=== PATIENT | female | born 1965 | race Caucasian/White ===

== ENCOUNTER 2019-08-26 08:58 | Emergency (ER) | payer OTHER, SELFPAY ==
[2019-08-26 09:17] VITALS: BP 151/82; PULSE 73; RESP 16; TEMP 36.6; O2SAT 99
--- NOTE | 2019-08-26 09:30 | ED.SKABFB ---
HPI - Skin/Abscess/Foreign Bdy General Chief complaint: Skin/Abscess/Foreign Body Stated complaint: rash Time Seen by Provider: 08/26/19 09:22 Source: patient and RN notes reviewed Mode of arrival: ambulatory Limitations: no limitations History of Present Illness HPI narrative: Patient presents today complaining of a severely pruritic rash to bilateral hands, arms, left flank. Symptoms began 5 days ago and have continued to worsen. Patient was out of town and swimming in the ocean, but typically only up to her thighs. Denies any known allergen exposure. She has been using Caladryl without relief. They have checked her bed and luggage for bedbugs without signing any. MD complaint: rash Related Data Allergies Allergy/AdvReac Type Severity Reaction Status Date / Time No Known Allergies Allergy Unverified 05/29/18 09:30 Review of Systems Review of Systems: Narrative: CONSTITUTIONAL: Denies body aches, fever, chills, or sweats. EYES: Denies visual changes, redness, or discharge. ENT: Denies rhinorrhea, congestion, sore throat, or otalgia. CARDIOVASCULAR: Denies chest pain, palpitations, or edema. RESPIRATORY: Denies cough or dyspnea. GASTROINTESTINAL: Denies abdominal pain, nausea, vomiting, or diarrhea. GENITOURINARY: Denies dysuria or hematuria. SKIN: Denies wounds.+ Pruritic rash MUSCULOSKELETAL: Denies back pain, joint pain, or myalgia. NEUROLOGIC: Denies headache, numbness, tingling, or weakness. PSYCH: Denies depression or anxiety. [facility] Family History Family History (Updated 09/11/15 @ 23:19 by DOCTOR UNKNOWN) Father Hypertension Family history of diabetes mellitus in first degree relative Family history of lung cancer Family history of type 2 diabetes mellitus Patient's father is Grandparent Hypertension Other Cerebrovascular accident Social History Social History Smoking status: Former smoker Smoking end date: 02/13/05 Alcohol intake: never Substance use type: marijuana Gender identity (if verbalized by the patient): Female Comments At time of signature, I have reviewed and agree with nursing past medical, surgical, social and family history unless otherwise noted. Please see nursing chart for further information. There is no relevant family history pertinent to the presenting complaint Exam Narrative: Exam Narrative: GENERAL: Well-appearing, well-nourished, and in no acute distress. HEAD: Normocephalic, atraumatic. EYES: EOMI. No redness or drainage. Conjunctivae normal. ENT: Mucous membranes pink and moist. NECK: Normal AROM. CHEST: No respiratory distress. EXTREMITIES: Normal range of motion. No edema. SKIN: Warm, dry. Capillary refill normal. Normal skin turgor. + Patches of erythematous pinpoint vesicles scattered over the dorsums of both hands, bilateral forearms and upper arms. She also has 2 areas to the left flank. No induration, fluctuance, or active drainage. NEURO: No focal deficits. Alert and oriented x3. Gait steady. PSYCH: Normal affect. No signs of depression or anxiety. Course Vital Signs Vital signs: Vital Signs Temperature 97.9 F 08/26/19 09:17 Pulse Rate 73 08/26/19 09:17 Respiratory Rate 16 08/26/19 09:17 Blood Pressure 151/82 H 08/26/19 09:17 Pulse Oximetry 99 08/26/19 09:17 Temperature 97.9 F 08/26/19 09:17 Pulse Rate 73 08/26/19 09:17 Respiratory Rate 16 08/26/19 09:17 Blood Pressure 151/82 H 08/26/19 09:17 Pulse Oximetry 99 08/26/19 09:17 Reviewed. Pt has been instructed to follow up with her PCP regarding her elevated blood pressure today. MDM - Skin/Abscess/Foreign Bdy Differential Diagnosis Differential diagnosis: Likely abscess of skin or subcutaneous tissue, urticaria, cellulitis, eczema, insect bites, impetigo, contact dermatitis and other (Bedbugs) Critical Care Time Critical Care Time Critical Care Time: No Discharge Plan Discharge Clinical Impression: Contact dermatitis
== END 2019-08-26 09:39 | disposition home or self-care (01) ==
PROVIDERS: Emergency Provider Nurse Practitioner
DX: L25.9 Unspecified contact dermatitis, unspecified cause (principal); Z87.891 Personal history of nicotine dependence
CPT/HCPCS: 99213; G0463

== ENCOUNTER 2023-11-10 06:20 | Emergency (ER) | payer OTHER, SELFPAY ==
--- NOTE | ~2023-11-10 | XR_ITS ---
EXAMINATION: XR chest 1V portable DATE: 11/10/2023 07:15 INDICATION: Right-sided chest pain TECHNIQUE: frontal view of the chest was obtained. COMPARISON: None FINDINGS: The lungs are clear with no focal airspace opacities, pulmonary edema, pleural effusion or pneumothor ax. The cardiomediastinal silhouette is normal. Visualized bones and soft tissues are unremarkable. IMPRESSION: 1. No acute cardiopulmonary disease. Reviewed, dictated and finalized at location A.
--- NOTE | ~2023-11-10 | CT_ITS ---
CT abdomen pelvis w con Ordering provider: Nico Lim MD History: 57 years Female with . RUQ abdominal pain . Comparison: None. Technique: CT abdomen and pelvis with IV and without oral contrast. Automated exposure control and it erative reconstruction technique were employed. The dose-length product was 1422.44 mGy-cm. 100 mL Om nipaque 350 was given IV. Findings: VISUALIZED LOWER CHEST: Normal. Tiny focal pleural thickening is seen in the left and right lung base s. UPPER ABDOMINAL ORGANS: Liver: Fat infiltration. Hepatomegaly Gallbladder: Cholelithiasis. Spleen: Normal. Stomach/duodenum: Normal. Pancreas: Normal. Adrenals: Adrenal adenoma in the right adrenal medial limb measuring 1.1 cm. Adrenal adenoma in the l eft medial limb measuring 1.6. No follow-up is advised unless clinically warranted. Kidneys: Normal. PELVIC ORGANS: The bladder is normal. Slight thickening in the anterior wall is not excluded no Foll ow-up advised. BOWEL AND MESENTERY: Colon: No evidence of diverticulitis. Normal appendix. A lucency is seen adjacent to the appendix isn 't clearly 122 is most likely artifactual. Small Bowel: Normal. No obstruction. Peritoneum/mesentery: No no definite free air or free fluid. No mesenteric lymphadenopathy. RETROPERITONEUM: Mild atheromatous disease of the abdominal aorta. No retroperitoneal lymphadenopat hy. Small para-aortic lymph nodes are noted. MUSCULOSKELETAL: Superficial soft tissues: The superficial soft tissues are normal. Bones: Age appropriate degenerative changes of the spine. IMPRESSION: 1. Hepatomegaly with fat infiltration.. 2. Cholelithiasis. 3. No evidence of appendicitis, diverticulitis or intestinal obstruction. Lucency is seen near to th e appendix is most likely artifactual. 4. Bilateral Adrenal adenoma. No follow-up is advised unless clinically warranted. Reviewed, dictated and finalized at location A. IMPRESSION: 1. Hepatomegaly with fat infiltration.. 2. Cholelithiasis. 3. No evidence of appendicitis, diverticulitis or intestinal obstruction. Ritchie ncy is seen near to the appendix is most likely artifactual. 4. Bilateral Adrenal adenoma. No follow-up is advised unless clinically warran dion.
[2023-11-10 06:27] VITALS: BP 146/62; PULSE 77; RESP 16; TEMP 36.6; O2SAT 99
--- NOTE | 2023-11-10 06:47 | ECG_ITS ---
Test Date: 2023-11-10 06:59:33 Measurements Intervals [place] Rate: 70 P: 35 MT: 192 QRS: 25 QRSD: 88 T: 75 QT: 383 QTc: 414 Interpretive Statements SINUS RHYTHM BORDERLINE ST-T WAVE ABNORMALITY- HIGH LATERAL LEADS BASELINE ARTIFACT- I, II, III, AVR, AVL BORDERLINE ECG No previous ECG available for comparison Electronically Signed On 11-10-2023 08:05:41 CDT by Adrien Bowers D.O.
[2023-11-10] MEDS: ASPIRIN 81 MG CHEWABLE TABLET 324 MG PO (06:53)
[2023-11-10 06:54] VITALS: PULSE 82
[2023-11-10 06:56] VITALS: O2SAT 100
[2023-11-10 07:10] LABS: Basophils Percent Auto 0.4 % (0.2-1.2); Eosinophils Absolute Auto 0.2 K/mm3 (0-0.3); Eosinophils Percent Auto 2.1 % (0-4.4); Hematocrit 39.6 % (37.0-47.0); Hemoglobin 13.4 g/dL (12.0-15.0); Immature Granulocyte Absolute 0.03 K/mm3 (0.00-0.031); Immature Granulocyte Percent A 0.4 % (0-0.5); Lymphocytes Absolute Auto 1.56 K/mm3 (0.9-3.2); Lymphocytes Percent Auto 20.9 % (18.3-44.2); Mean Corpuscular HGB Conc 33.8 g/dl (32-36); Mean Corpuscular Hemoglobin 28.5 pg (26-34); Mean Corpuscular Volume 84.3 fl (80-100); Mean Platelet Volume 9.5 fl (7.4-10.4); Monocytes Absolute Auto 0.3 K/mm3 (0.1-0.6); Monocytes Percent Auto 3.5 % (2.6-8.5); Neutrophils Absolute Auto 5.4 K/mm3 (1.3-6.7); Neutrophils Percent Auto 72.7 % (45.5-73.1); Platelet Count Result 231 k/mm3 (150-375); Red Cell Distribution Width 13.5 % (11.5-14.5); White Blood Count 7.5 K/mm3 (4.5-10.0)
[2023-11-10 07:16] VITALS: BP 140/76; PULSE 70; RESP 16; O2SAT 96
[2023-11-10 07:20] LABS: Alanine Aminotransferase 20 U/L (6-35); Albumin Level 4.1 g/dL (3.5-5.1); Alkaline Phosphatase 148 U/L (38-126); Anion Gap 10 mmol/L (4-12); Aspartate Amino Transferase 53 U/L (14-36); Bilirubin,Total 0.5 mg/dL (0.2-1.3); Blood Urea Nitrogen 8 mg/dL (7-17); Calcium 8.7 mg/dL (8.4-10.2); Carbon Dioxide 23 mmol/L (22-30); Chloride 102 mmol/L (98-107); Estimated CRCL calculation 104 ml/min; Estimated Glomerular Filt Rate > 60; Glucose 332 mg/dL (65-110); Lipase 89 U/L (23-300); Sodium 135 mmol/L (137-145)
[2023-11-10 07:22] LABS: INR 0.9
[2023-11-10 07:23] LABS: Partial Thromboplastin Time 30.6 Seconds (22.3-36.8)
[2023-11-10 07:32] LABS: Troponin I < 0.012 ng/mL (0.000-0.034)
--- NOTE | 2023-11-10 08:11 | ED.CHESTPAIN ---
HPI - Chest Pain General Chief Complaint: Chest Pain Stated Complaint: pain under right breast/ribs Time Seen by Provider: 11/10/23 06:56 Source: patient Mode of arrival: ambulatory Limitations: no limitations History of Present Illness HPI narrative: This is a 57-year-old female, with no significant past medical history, presents emergency department complaining of right-sided chest pain. She describes it as dull and burning without any known aggravating or alleviating factors. She states this pain began in June and has worsened in the past day. She has no other complaints at this time. Related Data Allergies Allergy/AdvReac Type Severity Reaction Status Date / Time No Known Allergies Allergy Verified 11/10/23 06:21 Review of Systems Review of Systems: All systems reviewed & are unremarkable except as noted in HPI and below PMFSH Past Medical History Medical History Aortic valve sclerosis Cardiac murmur Mixed hyperlipidemia Surgical History Surgical History No significant past surgical history Family History Family History Father Hypertension Family history of diabetes mellitus in first degree relative Family history of lung cancer Family history of type 2 diabetes mellitus Patient's father is Grandparent Hypertension Other Cerebrovascular accident Social History Social History Smoking status: Former smoker Smoking end date: 02/13/05 Alcohol intake: never Substance use type: marijuana Gender identity (if verbalized by the patient): Female Exam Narrative: GENERAL: Well-developed, well-nourished, and in no acute distress. HEAD: Normocephalic, atraumatic. EYES: PERRLA and EOMI. CHEST: Clear to auscultation. No respiratory distress. No wheezes rales or rhonchi. Mild right inferior costal margin tenderness to palpation HEART: Regular rate and rhythm. No murmur heard. Normal peripheral pulses. ABDOMEN: Soft, nontender, nondistended, normal active bowel sounds. EXTREMITIES: Normal range of motion. No edema. SKIN: Warm, dry, no rash. NEURO: Alert and oriented x3. No focal deficit. Moving all 4 limbs spontaneously PSYCH: Normal mood and affect. Course Course Emergency Course: 09:50 - CBC unremarkable. Chemistries demonstrate mild hyponatremia with sodium of 135 and hyperglycemia with glucose of 332 with a normal gap but are otherwise unremarkable. CT abdomen pelvis demonstrates fatty infiltration of liver without other acute changes, cholelithiasis bilateral adrenal adenoma but no other acute intra-abdominal findings. I suspect the patient's pain may be related to biliary colic. Heart score 1. I do not suspect ACS, however repeat troponin and EKG are now pending. Will plan for discharge after labs result. 10:37 - I discussed the findings and recommendations with the patient. Discussed return and emergency precautions including signs/symptoms of ACS, respiratory distress an acute abdomen. The patient voiced understanding and agreement with the plan. All questions answered to her satisfaction. Vital Signs Vital signs: Vital Signs Temperature 97.9 F 11/10/23 06:27 Pulse Rate 77 11/10/23 06:27 Respiratory Rate 16 11/10/23 06:27 Blood Pressure 146/62 H 11/10/23 06:27 Pulse Oximetry 99 11/10/23 06:27 Oxygen Delivery Room Air 11/10/23 06:27 Temperature 97.8 F 11/10/23 10:50 Pulse Rate 66 11/10/23 10:50 Respiratory Rate 18 11/10/23 10:50 Blood Pressure 154/75 H 11/10/23 10:50 Pulse Oximetry 98 11/10/23 10:50 Oxygen Delivery Room Air 11/10/23 06:56 MDM - Chest Pain MDM Narrative Medical decision making narrative: Plan: Labs, imaging, pain control, EKG, troponin, reassess Differential Diagnosis Differential
[2023-11-10] MEDS: SODIUM CHLORIDE 0.9% IV 1,000 ML 999 ML IV CONT (08:27)
--- NOTE | 2023-11-10 09:47 | ECG_ITS ---
Test Date: 2023-11-10 09:46:24 Measurements Intervals [place] Rate: 60 P: 1 AR: 200 QRS: 18 QRSD: 91 T: 72 QT: 407 QTc: 408 Interpretive Statements SINUS RHYTHM BORDERLINE ST-T WAVE ABNORMALITY- HIGH LATERAL LEADS BORDERLINE ECG Compared to ECG 11/10/2023 06:59:33 No significant changes Electronically Signed On 11-10-2023 10:32:57 CDT by Adrien Bowers D.O.
[2023-11-10 10:35] LABS: Troponin I < 0.012 ng/mL (0.000-0.034)
[2023-11-10 10:50] VITALS: BP 154/75; PULSE 66; RESP 18; TEMP 36.6; O2SAT 98
== END 2023-11-10 11:00 | disposition home or self-care (01) ==
PROVIDERS: Student in an Organized Health Care Education/Training Program; Emergency Provider Preventive Medicine Aerospace Medicine
DX: R07.89 Other chest pain (principal); K80.20 Calculus of gallbladder without cholecystitis without obstruction; K76.0 Fatty (change of) liver, not elsewhere classified; D35.02 Benign neoplasm of left adrenal gland; D35.01 Benign neoplasm of right adrenal gland; E78.2 Mixed hyperlipidemia; Z87.891 Personal history of nicotine dependence
CPT/HCPCS: 36415; 71045; 74177; 80053; 83690; 84484; 85025; 85610; 85730; 93005; 96360; 99284; A9270; J7030; Q9967

== ENCOUNTER 2023-12-11 09:15 | Outpatient (RCR) | payer OTHER, SELFPAY | END 2024-01-03 14:03 | disposition home or self-care (01) | LOC: ANHDMC 09:15 | PROVIDERS: PCP Family Medicine; Visit Provider Nurse Practitioner Adult Health | DX: E11.9 Type 2 diabetes mellitus without complications (principal); Z71.89 Other specified counseling | CPT/HCPCS: G0108 ==

== ENCOUNTER 2023-12-21 00:34 | Day surgery (SDC) | payer SELFPAY ==
[2023-12-12 14:18] VITALS: BMI 39.7
--- NOTE | 2023-12-12 14:19 | PC.NURSE ---
Report to the Outpatient Waiting Room, entrance under the green pavilion located off [facility], at time _1100_ on date _51-07-1926_. Planned Procedure Time: _1pm_.? Time changes happen often and if your time is changed the preop area will call you the afternoon before. - You and your visitor will be asked to self-screen and do not enter if you have any COVID symptoms. Please call surgeon if you need to reschedule. - A mask is optional within the hospital at this time. Patients may have clear liquids (water, carbonated beverages, clear teas, apple juice) until 3 hours prior to surgery with a maximum of 20 ounces. - No food from midnight until time of surgery and no smoking Take only the following medications with a SIP of water on the morning of surgery: __None DO NOT STOP ANY OF YOUR OTHER PRESCRIPTION MEDICATIONS PRIOR TO SURGERY EXCEPT THE FOLLOWING Medications to discontinue per physician ____None____ Please no make-up, nail estonian, hairspray, perfume, deodorant, or body powder the day of surgery.? No jewelry (including any body piercings) or valuables the day of surgery, leave them at home.? Please take a shower or bath the night before, or the morning of, surgery with an antibacterial soap.? Wear comfortable, loose fitting clothing.? - Jewelry must be removed prior to entering the operating room.? Rings and piercings that are not removed may be cut off. - The hospital will not accept responsibility for valuables.? - Please leave all valuables, including medications, at home the day of surgery. If you are going home after surgery, a licensed shuttle van driver must drive you home.? - NO public transportation without another adult if you receive anesthesia. - We recommend that an adult stay with you for 24 hours following discharge. - We also recommend that you do not drive, make important decision, drink alcoholic beverages, or take any drugs that were not prescribed by your health care provider for at least 24 hours after your discharge time. Follow any additional instructions given to you from your surgeon. Telephone instructions given to _Sheri_and asked if any additional questions and then verbalized understanding. Patient advised to call surgeon office or pre surgery nurse liaison [phone] if any additional questions.
[2023-12-21] VITALS (9 sets, daily range): BP systolic 128–178; BP diastolic 51–75; PULSE 59–70; RESP 10–16; TEMP 36.2–36.6; O2SAT 92–100; BMI 39.7
--- NOTE | 2023-12-21 08:47 | P.PNAN_ITS ---
Anes - Initial Pre Proc Eval Procedure: Operation Date: 12/21/23 13:00 Proposed Procedures p Laparoscopic Cholecystectomy - Charles Fung MD Date/Time: 12/21/23 08:48 Surgeon: Charles Fung MD Pre Op Diagnosis: Chr Calculous Cholecystitis Patient Data Age: 58 Gender: F Height: 1.6 m Weight: 101.8 kg Allergies Allergy/AdvReac Type Severity Reaction Status Date / Time No Known Allergies Allergy Verified 12/13/23 08:59 Home Medications Medication Instructions Recorded Confirmed Type dapagliflozin propanediol 5 mg 5 mg PO DAILY #30 tabs 11/21/23 12/13/23 Rx tablet (Farxiga) blood sugar diagnostic (OneTouch #100 ea 12/20/23 Rx Verio test strips) blood-glucose meter (OneTouch #1 ea 12/20/23 Rx Verio Flex Meter) lancets 30 gauge (OneTouch #100 ea 12/21/23 Rx UltraSoft 2 Lancet) Patient hx anesthesia problems: none Family hx anesthesia problems: none Results Review: All pre-operative results and documents have been reviewed as part of the pre- operative evaluation. COUNT INCLUDES THE [facility] Past Medical History Medical History Aortic valve sclerosis Cardiac murmur Diabetes Elevated liver enzymes Menopausal and postmenopausal disorder Mixed hyperlipidemia Screening for breast cancer Screening for colon cancer Surgical History Surgical History Hx of section 1992 No significant past surgical history Family History Family History Father Hypertension Family history of diabetes mellitus in first degree relative Family history of lung cancer Family history of type 2 diabetes mellitus Patient's father is Grandparent Hypertension Other Atrial fibrillation Cerebrovascular accident Crohn disease Social History Social History Smoking packs per day: 1 Smoking cigarettes per day: 20.0 Years smoked: 20 Smoking pack-years: 20.00 Smoking status: Former smoker Tobacco type: cigarettes Smoking end date: 12/11/06 Alcohol intake: current Drinks per week: 1 Substance use type: marijuana Other substance usage details: Daily Do You Feel Safe in your Home?: Yes Lack of Transportation: No Lack of Food: Sometimes True Current Housing: I Have Housing Concerned About Future Housing: No Difficulty Paying Gas/Electric Bills: No Difficulty Paying for Meds: No Currently Unemployed: No Education: Associate Degree Difficulty w/ Childcare or Family Care: No Living arrangements: with family Gender identity (if verbalized by the patient): Female Spiritual care concerns: No Anes - Eval Final PreProcedure Day of Procedure 12/21/23 08:48 Patient weight: obese Heart: regular rate and rhythm (murmur) Lungs: clear to auscultation and normal air movement Airway: Mallampati scale class II Neurological: alert and oriented Last oral intake: >/= 8 hours (before 8pm last night) ASA classification: III Emergent: no Anesthetic plan: proceed Anesthesia type and monitoring: general ETT and standard monitoring Results Review: All pre-operative results and documents have been reviewed as part of the pre- operative evaluation. Informed Consent: The patient's anesthetic plan and its attendant risks and benefits were discussed with the patient/family/POA. Questions were solicited and answers provided to the satisfaction of the patient/family/POA.
[2023-12-21] MEDS: LACTATED RINGERS 1,000 ML 30 ML IV CONT ×2 (11:20→14:54)
[2023-12-21 11:25] LABS: Basophils Percent Auto 0.5 % (0.2-1.2); Eosinophils Absolute Auto 0.2 K/mm3 (0-0.3); Eosinophils Percent Auto 2.7 % (0-4.4); Hematocrit 41.9 % (37.0-47.0); Hemoglobin 13.9 g/dL (12.0-15.0); Immature Granulocyte Absolute 0.02 K/mm3 (0.00-0.031); Immature Granulocyte Percent A 0.2 % (0-0.5); Lymphocytes Percent Auto 30.2 % (18.3-44.2); Mean Corpuscular HGB Conc 33.2 g/dl (32-36); Mean Corpuscular Hemoglobin 28.4 pg (26-34); Mean Corpuscular Volume 85.7 fl (80-100); Mean Platelet Volume 9.5 fl (7.4-10.4); Monocytes Absolute Auto 0.3 K/mm3 (0.1-0.6); Monocytes Percent Auto 3.9 % (2.6-8.5); Neutrophils Absolute Auto 5.2 K/mm3 (1.3-6.7); Neutrophils Percent Auto 62.5 % (45.5-73.1); Platelet Count Result 289 k/mm3 (150-375); Red Blood Count 4.89 M/mm3 (4.2-5.4); Red Cell Distribution Width 14.3 % (11.5-14.5); White Blood Count 8.3 K/mm3 (4.5-10.0)
[2023-12-21 11:29] LABS: Glucose Point of Care 154 mg/dl (65-105)
[2023-12-21 11:45] LABS: Alanine Aminotransferase 16 U/L (6-35); Albumin Level 4.5 g/dL (3.5-5.1); Alkaline Phosphatase 102 U/L (38-126); Amylase 74 U/L (30-110); Aspartate Amino Transferase 42 U/L (14-36); Bilirubin,Total 0.8 mg/dL (0.2-1.3); Lipase 60 U/L (23-300)
--- NOTE | 2023-12-21 12:17 | WPDHPUPDATE1 ---
History and Physical Update Update Date/Time: 12/21/23 12:17 History and Physical has been reviewed, including an updated exam of the patient. There are NO changes in the patient's condition. Risks, benefits, and alternatives have been discussed and questions answered. Patient agrees to proceed with procedure.
[2023-12-21] MEDS: KETOROLAC 15 MG/ML VIAL (*BKC) IV PUSH (12:46)
[2023-12-21] MEDS: SCOPOLAMINE 1 MG PATCH 1 PATCH TRANSDERM (12:46)
[2023-12-21] MEDS: ACETAMINOPHEN 500 MG TABLET 1000 MG PO (12:46)
[2023-12-21] MEDS: ceFAZolin 2 GM/D5W 50 ML 2 GM/50 ML BAG IVPB (13:42)
[2023-12-21] MEDS: BUPIVACAINE/EPINEPHRINE 0.5% 50 ML VIAL 30 ML INFILTRATE (13:42)
--- NOTE | 2023-12-21 14:26 | SUR.OPER ---
100 mcg of fentanyl given to Penny Shi ARCHITECTURE ANALYST
--- NOTE | 2023-12-21 14:54 | P.OP_ITS ---
Procedure Note - Detailed Date of Procedure 12/21/23 Pre-op Diagnosis Cholelithiasis with chronic cholecystitis Post-op Diagnosis Same Procedure Performed Laparoscopic cholecystectomy Surgeon Charles Fung MD Senior Staff Specialized Employment Yadira Mccormick [facility] Anesthesia General and Local Indications Patient has been having postprandial epigastric abdominal pain that radiates around to her back. It is worse after fatty meals. It has been going on for 8 or 9 months and now she has chronic right upper quadrant pain but made much worse with eating and particularly fatty foods. Her imaging shows gallstones. She is taken to surgery now for laparoscopic cholecystectomy Findings Chronic inflammation, no biliary ductal dilatation, fatty liver, large gallstone in the gallbladder. Description of Procedure Patient was taken to surgery and induced into general anesthesia. The abdomen is prepped and draped. Initial incision was made after local infiltration. The incision was in the epigastrium. A varies needle was inserted into the peritoneal cavity and insufflation was carried out. Once the abdomen was adequately distended, 5 minutes mm applied Medical optical trocar was inserted. This showed intraperitoneal position. Under direct visualization, the other trocars were placed in the usual fashion. The 5 mm trocar was exchanged for a 10 11 trocar also under direct vision. Patient was placed in reverse Trendelenburg. Gallbladder was found easily. It had no adhesions to it. A laparoscopic aspirator was used and the gallbladder was decompressed. A Vicryl endoloop was then used and the cholecystotomy was closed. The gallbladder was then retracted anterosuperiorly. Traction was placed on the infundibulum. The large stone was noted during decompression of the gallbladder as well as in the area of the infundibulum. With traction on the infundibulum dissection in the triangle of Calot was carried out. A cystic duct and cystic artery were carefully dissected. The gallbladder was dissected off the liver at its lower 3rd. Critical view was achieved. I then securely clipped and divided the cystic duct and cystic artery. The gallbladder was then dissected from its remaining attachments to the liver until it was completely freed. Gallbladder was placed in an Endo-Catch bag and then retrieved through the 10 11 epigastric trocar site. I had to slightly dilate the epigastric trocar site with a blunt clamp to accommodate the gallbladder with its large stone. Once the gallbladder was removed, I replaced the epigastric trocar and we then reviewed the right upper quadrant. All looked good with no evidence of bleeding or bile leakage. We then evacuated CO2 and removed the trocar sleeves. Skin wounds were closed with running 4-0 Monocryl skin suture. The wounds were dressed with Exofin surgical adhesive. The patient was awakened and taken to recovery in good condition. Sponge and needle counts were correct x2. Estimated Blood Loss -5 Drains No Packing No Pathology Yes (Gallbladder) Complications None Condition Stable Disposition PACU [facility] Billing Surgery - Charge Forward: Surgery Billing (Laparoscopic cholecystectomy)
[2023-12-21] MEDS: fentaNYL CITRATE INJ (*CRX) 100 MCG/2 ML VIAL 25 MCG IV PUSH ×2 (15:57→16:00)
== END 2023-12-21 17:15 | disposition home or self-care (01) ==
PROVIDERS: PCP Family Medicine; Visit Provider Surgery
PROC: 0FT44ZZ Resection of Gallbladder, Percutaneous Endoscopic Approach (ICD-10-PCS; CPT 47562; principal; 2023-12-21 13:00)
DX: K80.10 Calculus of gallbladder with chronic cholecystitis without obstruction (principal); E78.2 Mixed hyperlipidemia; E11.9 Type 2 diabetes mellitus without complications; I35.8 Other nonrheumatic aortic valve disorders; G89.18 Other acute postprocedural pain; R01.1 Cardiac murmur, unspecified; F12.90 Cannabis use, unspecified, uncomplicated; E66.9 Obesity, unspecified; Z68.39 Body mass index [BMI] 39.0-39.9, adult; Z79.84 Long term (current) use of oral hypoglycemic drugs; Z98.890 Other specified postprocedural states; Z87.891 Personal history of nicotine dependence; Z80.1 Family history of malignant neoplasm of trachea, bronchus and lung; Z82.49 Family history of ischemic heart disease and other diseases of the circulatory system
CPT/HCPCS: 47562; 36415; 80076; 82150; 82948; 83690; 85025; 88304; A9270; J0330; J0690; J1100; J1885; J2003; J2250; J2405; J2704; J3010; J7030; J7120

== ENCOUNTER 2023-12-30 22:52 | Emergency (ER) | payer OTHER, SELFPAY ==
--- NOTE | ~2023-12-30 | XR_ITS ---
Portable chest x-ray Comparison: 11/10/2023 Clinical History: Chest pain Findings: Lungs are clear, without focal consolidation or pleural effusion. Cardiomediastinal silho uette is stable. Bones and soft tissues are unremarkable. Impression: Normal chest. Reviewed, dictated and finalized at [facility]. RVISOR RECORD PRESS Impression: Normal chest.
--- NOTE | ~2023-12-30 | CT_ITS ---
Clinical Indication: Chest pain, recent surgery CT Scan of the Chest with Contrast: Technique: Contiguous sections were acquired throughout the chest after intravenous administration of 100 cc of Omnipaque 350. Dose reduction technique was used on this scan by utilizing automated expos ure control and iterative reconstruction technique. The dose-length product (DLP) was 569.85 mGy-cm. COMPARISON: 11/10/2023 Findings: There is no evidence of any significant mediastinal, hilar or axillary lymphadenopathy. There is no f illing defect in the pulmonary arterial tree to suggest pulmonary embolus. There is no evidence of ao rtic dissection or aneurysm. There is no evidence of pleural or pericardial effusion. The lungs are clear. No pulmonary nodules or infiltrates are noted. Images through the upper abdomen reveal stable bilateral adrenal nodules. Impression: No evidence of pulmonary embolus, aortic dissection, or aortic aneurysm. Clear lungs. Reviewed, dictated and finalized at [facility]. E WINDER Impression: No evidence of pulmonary embolus, aortic dissection, or aortic aneurysm. Clear lungs.
[2023-12-30 22:53] VITALS: BP 154/88; PULSE 73; RESP 16; TEMP 36.4; O2SAT 99
--- NOTE | 2023-12-30 22:59 | ECG_ITS ---
Test Date: 2023-12-30 23:02:59 Measurements Intervals [place] Rate: 66 P: 7 NE: 197 QRS: 43 QRSD: 84 T: 61 QT: 398 QTc: 418 Interpretive Statements SINUS RHYTHM LOW QRS VOLTAGE IN PRECORDIAL LEADS CANNOT R/O SEPTAL INFARCT, AGE INDETERMINATE BORDERLINE ST-T WAVE ABNORMALITY- HIGH LATERAL LEADS BASELINE ARTIFACT- I, II, III, AVR, AVL, AVF, V1-V6 ABNORMAL ECG Compared to ECG 11/10/2023 09:46:24 NO SIGNIFICANT CHANGE Electronically Signed On 12-31-2023 07:43:15 CRITICAL CARE PHYSICIAN ASSISTANT by Adrien Bowers D.O.
[2023-12-30 23:01] VITALS: PULSE 70
[2023-12-30 23:02] VITALS: BP 154/88; PULSE 73; RESP 14; O2SAT 98; O2SAT 99
[2023-12-30 23:08] LABS: Basophils Percent Auto 0.4 % (0.2-1.2); Eosinophils Absolute Auto 0.3 K/mm3 (0-0.3); Eosinophils Percent Auto 2.5 % (0-4.4); Hematocrit 40.4 % (37.0-47.0); Hemoglobin 13.5 g/dL (12.0-15.0); Immature Granulocyte Absolute 0.02 K/mm3 (0.00-0.031); Immature Granulocyte Percent A 0.2 % (0-0.5); Lymphocytes Absolute Auto 3.29 K/mm3 (0.9-3.2); Lymphocytes Percent Auto 33.2 % (18.3-44.2); Mean Corpuscular HGB Conc 33.4 g/dl (32-36); Mean Corpuscular Hemoglobin 28.4 pg (26-34); Mean Corpuscular Volume 84.9 fl (80-100); Mean Platelet Volume 9.5 fl (7.4-10.4); Monocytes Absolute Auto 0.5 K/mm3 (0.1-0.6); Neutrophils Absolute Auto 5.8 K/mm3 (1.3-6.7); Neutrophils Percent Auto 58.7 % (45.5-73.1); Platelet Count Result 294 k/mm3 (150-375); Red Blood Count 4.76 M/mm3 (4.2-5.4); Red Cell Distribution Width 14.1 % (11.5-14.5); White Blood Count 9.9 K/mm3 (4.5-10.0)
[2023-12-30 23:18] LABS: Alanine Aminotransferase 17 U/L (6-35); Albumin Level 4.4 g/dL (3.5-5.1); Alkaline Phosphatase 119 U/L (38-126); Anion Gap 8 mmol/L (4-12); Aspartate Amino Transferase 44 U/L (14-36); Bilirubin,Total 0.8 mg/dL (0.2-1.3); Blood Urea Nitrogen 15 mg/dL (7-17); Calcium 9.6 mg/dL (8.4-10.2); Carbon Dioxide 25 mmol/L (22-30); Chloride 105 mmol/L (98-107); Estimated CRCL calculation 75 ml/min; Estimated Glomerular Filt Rate > 60; Glucose 218 mg/dL (65-110); Lipase 80 U/L (23-300); Potassium 4.3 mmol/L (3.4-5.0); Sodium 138 mmol/L (137-145)
--- NOTE | 2023-12-30 23:26 | ED_ITS ---
HPI - Chest Pain General Chief Complaint: Chest Pain <CHRISTINA Santos Last Filed: 12/31/23 01:47> Stated Complaint: chest pain <CHRISTINA Santos Last Filed: 12/31/23 01:47> Time Seen by Provider: 12/30/23 22:57 <Hang Morrison PA-C - Last Filed: 12/31/23 01:47> Source: patient <CHRISTINA Santos Last Filed: 12/31/23 01:47> Mode of arrival: EMS <CHRISTINA Santos Last Filed: 12/31/23 01:47> Limitations: no limitations <CHRISTINA Santos Filed: 12/31/23 01:47> History of Present Illness HPI narrative: This is a 58-year-old female who presents to the ED via EMS from home for chief complaint of left sharp left-sided chest pain beginning 45 minutes prior to arrival. Patient reports that she started to have pain shooting from back to front under the left arm and is worse with inspiration. She is s/p cholecystectomy 9 days ago for cholecystitis. Denies cardiac history but was recently diagnosed with diabetes mellitus as well. States that she had an episode of diaphoresis tonight but no associated syncope, vomiting. Does not seem to be exertional. She has known aortic stenosis. Denies fevers, chills, leg swelling, palpitations, shortness of breath, cough. Received 324 ASA via EMS <Hang Morrison PA-C Last Filed: 12/31/23 01:47> Related Data Allergies/Adverse Reactions: Allergies Allergy/AdvReac Type Severity Reaction Status Date / Time No Known Allergies Allergy Verified 12/30/23 23:03 <Hang Morrison PA-C - Last Filed: 12/31/23 01:47> Review of Systems Review of Systems: All systems as dictated in HPI <Hang Morrison PA-C Last Filed: 12/31/23 01:47> [facility] Past Medical History Medical History: Medical History Aortic valve sclerosis Cardiac murmur Diabetes Elevated liver enzymes Menopausal and postmenopausal disorder Mixed hyperlipidemia Screening for breast cancer Screening for colon cancer <Hang Morrison PA-C - Last Filed: 12/31/23 01:47> Surgical History Surgical History: Surgical History Hx of section 1992 No significant past surgical history <Hang Morrison PA-C - Last Filed: 12/31/23 01:47> Family History Family History: Family History Father Hypertension Family history of diabetes mellitus in first degree relative Family history of lung cancer Family history of type 2 diabetes mellitus Patient's father is Grandparent Hypertension Other Atrial fibrillation Cerebrovascular accident Crohn disease <Hang Morrison PA-C - Last Filed: 12/31/23 01:47> Social History Social History: Social History Smoking packs per day: 1 Smoking cigarettes per day: 20.0 Years smoked: 20 Smoking pack-years: 20.00 Smoking status: Former smoker Tobacco type: cigarettes Smoking end date: 12/11/06 Alcohol intake: current Drinks per week: 1 Substance use type: marijuana Other substance usage details: Daily Do You Feel Safe in your Home?: Yes Lack of Transportation: No Lack of Food: Sometimes True Current Housing: I Have Housing Concerned About Future Housing: No Difficulty Paying Gas/Electric Bills: No Difficulty Paying for Meds: No Currently Unemployed: No Education: Associate Degree Difficulty w/ Childcare or Family Care: No Living arrangements: with family Gender identity (if verbalized by the patient): Female Spiritual care concerns: No <CHRISTINA Santos Last Filed: 12/31/23 01:47> Exam Narrative: GENERAL: Well-appearing, well-nourished, and in no acute distress. HEAD: Normocephalic, atraumatic. EYES: PERRLA and EOMI. ENT: Nares clear, no rhinorrhea or epistaxis. Mucous membranes moist. Oropharynx without tonsillar hypertrophy exudate or other lesions. NECK: Supple. No adenopathy or masses. CHEST: No respiratory distress. Clear to auscultation. No wheezes rales or rhonchi HEART: Regular rate and rhythm. No murmur heard. Normal peripheral pulses. ABDOMEN: Soft, nontender, nondistended, normal active bowel sounds. MSK: Normal range of motion. No edema. SKIN: Warm, dry, no rash. NEURO: Alert and oriented x4. No focal deficits. PSYCH: Normal mood and affect. <Hang Morrison PA-C - Last Filed: 12/31/23 01:47> Course Reevaluation(s) Reevaluation #1: Patient states morphine did not help very much and now she has developed a headache. Vitals remained stable. Exam is unchanged. <Hang Morrison PA-C - Last Filed: 12/31/23 01:47> Date: 12/31/23 <Hang Morrison PA-C - Last Filed: 12/31/23 01:47> Time: 00:43 <Hang Morrison PA-C - Last Filed: 12/31/23 01:47> Vital Signs Vital signs: Vital Signs Temperature 36.4 C 12/30/23 22:53 Pulse Rate 73 12/30/23 22:53 Respiratory Rate 16 12/30/23 22:53 Blood Pressure 154/88 H 12/30/23 22:53 Pulse Oximetry 99 12/30/23 22:53 Oxygen Delivery Room Air 12/30/23 22:53 Temperature 36.4 C 12/30/23 22:53 Pulse Rate 70 12/31/23 01:20 Respiratory Rate 14 12/31/23 01:20 Blood Pressure 150/63 H 12/31/23 01:20 Pulse Oximetry 96 12/31/23 01:20 Oxygen Delivery Room Air 12/30/23 23:02 <Hang Morrison PA-C - Last Filed: 12/31/23 01:47> Vital Signs Temperature 36.4 C 12/30/23 22:53 Pulse Rate 73 12/30/23 22:53 Respiratory Rate 16 12/30/23 22:53 Blood Pressure 154/88 H 12/30/23 22:53 Pulse Oximetry 99 12/30/23 22:53 Oxygen Delivery Room Air 12/30/23 22:53 Temperature 36.4 C 12/30/23 22:53 Pulse Rate 70 12/31/23 01:20 Respiratory Rate 14 12/31/23 01:20 Blood Pressure 150/63 H 12/31/23 01:20 Pulse Oximetry 96 12/31/23 01:20 Oxygen Delivery Room Air 12/30/23 23:02 <Ronny Ross MD - Last Filed: 12/31/23 04:03> MDM - Chest Pain MDM Narrative Medical decision making narrative: This is a 58 yo female who presents to the ED for chief complaint of left- sided chest pain onset today. Recent surgical history of cholecystectomy. Vitals show mildly elevated blood pressure but otherwise normal.. EKG shows sinus rhythm with no acute ischemia. Exam is unremarkable. Lab work shows normal troponin but elevated D-dimer. Otherwise lab work is unremarkable. Patient will be handed off to attending Dr. Ross pending CTA results to rule out PE. <Hang Morrison PA-C - Last Filed: 12/31/23 01:47> Lab Data Result diagrams: 12/30/23 23:02 12/30/23 23:02 <Hang Morrison PA-C - Last Filed: 12/31/23 01:47> Labs: Lab Results 12/30/23 12/31/23 Range/Units 23:02 02:00 WBC 9.9 (4.5-10.0) K/mm3 RBC 4.76 (4.2-5.4) M/mm3 Hgb 13.5 (12.0-15.0) g/dL Hct 40.4 (37.0-47.0) % MCV 84.9 (80-100) fl MCH 28.4 (26-34) pg MCHC 33.4 (32-36) g/dl RDW 14.1 (11.5-14.5) % Plt Count 294 (150-375) k/mm3 MPV 9.5 (7.4-10.4) fl Immature Gran % (Auto) 0.2 (0-0.5) % Neut % (Auto) 58.7 (45.5-73.1) % Lymph % (Auto) 33.2 (18.3-44.2) % [place] % (Auto) 5.0 (2.6-8.5) % Eos % (Auto) 2.5 (0-4.4) % Baso % (Auto) 0.4 (0.2-1.2) % Lymph # (Auto) 3.29 H (0.9-3.2) K/mm3 [place] # (Auto) 0.5 (0.1-0.6) K/mm3 Eos # (Auto) 0.3 (0-0.3) K/mm3 Baso # (Auto) 0.0 (0.0-0.1) K/mm3 Abs Immat Gran (auto) 0.02 (0.00-0.031) K/mm3 Absolute Neuts (auto) 5.8 (1.3-6.7) K/mm3 Absolute Nucleated RBC 0.000 (0.0-0.012) K/mm3 Nucleated RBC % 0.0 (0.0-0.2) % PT 13.1 (11.1-14.7) Seconds INR 1.0 APTT 32.6 (22.3-36.8) Seconds D-Dimer 1.09 H (<0.48) ug/mL Sodium 138 (137-145) mmol/L Potassium 4.3 (3.4-5.0) mmol/L Chloride 105 (98-107) mmol/L Carbon Dioxide 25 (22-30) mmol/L Anion Gap 8 (4-12) mmol/L BUN 15 D (7-17) mg/dL Creatinine 0.80 (0.7-1.0) mg/dL Estim Creat Clear Calc 75 ml/min Estimated GFR > 60 (59 - ) Glucose 218 H (65-110) mg/dL Calcium 9.6 (8.4-10.2) mg/dL Total Bilirubin 0.8 (0.2-1.3) mg/dL AST 44 H (14-36) U/L ALT 17 (6-35) U/L Alkaline Phosphatase 119 (38-126) U/L Troponin I < 0.012 < 0.012 (0.000-0.034) ng/mL NT-Pro-B Natriuret Pep 49 (19.9-100) pg/mL Total Protein 8.0 (6.3-8.2) g/dL Albumin 4.4 (3.5-5.1) g/dL Lipase 80 (23-300) U/L <Hang Morrison PA-C - Last Filed: 12/31/23 01:47> Lab Results 12/30/23 12/31/23 Range/Units 23:02 02:00 WBC 9.9 (4.5-10.0) K/mm3 RBC 4.76 (4.2-5.4) M/mm3 Hgb 13.5 (12.0-15.0) g/dL Hct 40.4 (37.0-47.0) % MCV 84.9 (80-100) fl MCH 28.4 (26-34) pg MCHC 33.4 (32-36) g/dl RDW 14.1 (11.5-14.5) % Plt Count 294 (150-375) k/mm3 MPV 9.5 (7.4-10.4) fl Immature Gran % (Auto) 0.2 (0-0.5) % Neut % (Auto) 58.7 (45.5-73.1) % Lymph % (Auto) 33.2 (18.3-44.2) % [place] % (Auto) 5.0 (2.6-8.5) % Eos % (Auto) 2.5 (0-4.4) % Baso % (Auto) 0.4 (0.2-1.2) % Lymph # (Auto) 3.29 H (0.9-3.2) K/mm3 [place] # (Auto) 0.5 (0.1-0.6) K/mm3 Eos # (Auto) 0.3 (0-0.3) K/mm3 Baso # (Auto) 0.0 (0.0-0.1) K/mm3 Abs Immat Gran (auto) 0.02 (0.00-0.031) K/mm3 Absolute Neuts (auto) 5.8 (1.3-6.7) K/mm3 Absolute Nucleated RBC 0.000 (0.0-0.012) K/mm3 Nucleated RBC % 0.0 (0.0-0.2) % PT 13.1 (11.1-14.7) Seconds INR 1.0 APTT 32.6 (22.3-36.8) Seconds D-Dimer 1.09 H (<0.48) ug/mL Sodium 138 (137-145) mmol/L Potassium 4.3 (3.4-5.0) mmol/L Chloride 105 (98-107) mmol/L Carbon Dioxide 25 (22-30) mmol/L Anion Gap 8 (4-12) mmol/L BUN 15 D (7-17) mg/dL Creatinine 0.80 (0.7-1.0) mg/dL Estim Creat Clear Calc 75 ml/min Estimated GFR > 60 (59 - ) Glucose 218 H (65-110) mg/dL Calcium 9.6 (8.4-10.2) mg/dL Total Bilirubin 0.8 (0.2-1.3) mg/dL AST 44 H (14-36) U/L ALT 17 (6-35) U/L Alkaline Phosphatase 119 (38-126) U/L Troponin I < 0.012 < 0.012 (0.000-0.034) ng/mL NT-Pro-B Natriuret Pep 49 (19.9-100) pg/mL Total Protein 8.0 (6.3-8.2) g/dL Albumin 4.4 (3.5-5.1) g/dL Lipase 80 (23-300) U/L <Ronny Ross MD - Last Filed: 12/31/23 04:03> ECG Data EKG #1: ECG completion date: 12/30/23 <Hang Morrison PA-C - Last Filed: 12/31/23 01:47> ECG completion time: 23:02 <Hang Morrison PA-C - Last Filed: 12/31/23 01:47> Prior ECG tracings: available for review <Hang Morrisno PA-C - Last Filed: 12/31/23 01:47> Interpretation: Sinus rhythm Rate 66 Normal QRS Normal QTC No acute ischemic findings <Hang Morrison PA-C - Last Filed: 12/31/23 01:47> Discharge Plan Discharge Clinical Impression: Chest pain <Hang Morrison PA-C - Last Filed: 12/31/23 01:47> Patient Disposition: Home, Self-Care <Hang Morrison PA-C - Last Filed: 12/31/23 01:47> Condition: Stable <CHRISTINA Santos Filed: 12/31/23 01:47> Instructions: Antibiotic Form, Chest Pain (ED) <Hang Morrison PA-C - Last Filed: 12/31/23 01:47> Prescriptions: No Action dapagliflozin propanediol [Farxiga] 5 mg tablet 5 mg PO DAILY Qty: 30 3RF ketorolac 10 mg tablet 10 mg PO Q6H 4 Days Qty: 16 0RF oxycodone-acetaminophen 5-325 mg tablet 0.5 - 1 tablet PO Q6H PRN (Reason: pain) Qty: 10 0RF (DME) blood-glucose meter [OneTouch Verio Flex meter] Misc See Rx Instructions .Route Qty: 1 0RF Rx Instructions: As directed for diabetes (DME) OneTouch Verio test strips Strip See Rx Instructions .Route Qty: 100 0RF Rx Instructions: check glucose bid for diabetes (DME) lancets [OneTouch UltraSoft 2 Lancet] 30 gauge misc See Rx Instructions .Route Qty: 100 0RF Rx Instructions: check glucose bid for diabetes <Hang Morrison PA-C - Last Filed: 12/31/23 01:47> Follow-up/Referrals: Felipe Bella MD [Primary Care Provider] - <Hang Morrison PA-C - Last Filed: 12/31/23 01:47> Time of Disposition: 04:00 <Hang Morrison PA-C - Last Filed: 12/31/23 01:47> 04:00 <Ronny Ross MD - Last Filed: 12/31/23 04:03> Quality HEART score for chest pain patients History: slightly suspicious <Hang Morrison PA-C - Last Filed: 12/31/23 01:47> ECG: normal <Hang Morrison PA-C - Last Filed: 12/31/23 01:47> Age: > 45 and < 65 years <Hang Morrison PA-C - Last Filed: 12/31/23 01:47> Risk factors: 1 or 2 risk factors <Hang Morrison PA-C - Last Filed: 12/31/23 01:47> Troponin: < or = to 1x normal limit <Hang Morrison PA-C - Last Filed: 12/31/23 01:47> Heart score: 2 <Hang Morrison PA-C - Last Filed: 12/31/23 01:47> 2 <Ronny Ross MD - Last Filed: 12/31/23 04:03>
[2023-12-30 23:30] LABS: Troponin I < 0.012 ng/mL (0.000-0.034)
[2023-12-30] MEDS: MORPHINE SULFATE (*CRX) 4 MG/ML INJ IV PUSH (23:34)
[2023-12-30] MEDS: ONDANSETRON INJ 4 MG/2 ML VIAL IV PUSH (23:34)
[2023-12-30 23:35] LABS: Prothrombin Time 13.1 Seconds (11.1-14.7)
[2023-12-30 23:36] LABS: Partial Thromboplastin Time 32.6 Seconds (22.3-36.8)
[2023-12-30 23:53] LABS: NT Pro B Type Natriuretic Pept 49 pg/mL (19.9-100)
[2023-12-31 00:08] LABS: D Dimer 1.09 ug/mL (<0.48)
[2023-12-31] MEDS: SODIUM CHLORIDE 0.9% IV 1,000 ML 999 ML IV CONT (01:17)
[2023-12-31] MEDS: HYDROmorphone HCL INJ (*CRX) 1 MG/ML SYR 0.5 MG IV PUSH (01:17)
[2023-12-31 01:20] VITALS: BP 150/63; PULSE 70; RESP 14; O2SAT 96
--- NOTE | 2023-12-31 01:56 | ECG_ITS ---
Test Date: 2023-12-31 02:00:31 Measurements Intervals [place] Rate: 60 P: 1 CT: 216 QRS: 30 QRSD: 89 T: 52 QT: 398 QTc: 399 Interpretive Statements SINUS RHYTHM WITH FIRST DEGREE AV BLOCK CANNOT R/O SEPTAL INFARCT, AGE INDETERMINATE BASELINE ARTIFACT- I, II, III, AVR, AVL, AVF ABNORMAL ECG Compared to ECG 12/30/2023 23:02:59 First degree AV block now present Electronically Signed On 12-31-2023 07:47:37 FINGERNAIL TECHNICIAN by Adrien Bowers D.O.
[2023-12-31 02:36] LABS: Troponin I < 0.012 ng/mL (0.000-0.034)
[2023-12-31 04:14] VITALS: PULSE 65; RESP 19; O2SAT 97
== END 2023-12-31 04:50 | disposition home or self-care (01) ==
PROVIDERS: Emergency Medicine; Emergency Provider Physician Assistant; PCP Family Medicine
DX: R07.9 Chest pain, unspecified (principal); Z98.890 Other specified postprocedural states; E11.9 Type 2 diabetes mellitus without complications; E78.2 Mixed hyperlipidemia; Z87.891 Personal history of nicotine dependence; Z79.84 Long term (current) use of oral hypoglycemic drugs; R94.31 Abnormal electrocardiogram [ECG] [EKG]; I44.0 Atrioventricular block, first degree; Z90.49 Acquired absence of other specified parts of digestive tract
CPT/HCPCS: 36415; 71045; 71275; 80053; 83690; 83880; 84484; 85025; 85380; 85610; 85730; 93005; 96361; 96374; 96375; 99284; J1171; J2270; J2405; J7030; Q9967

== ENCOUNTER 2024-01-30 10:05 | Outpatient (CLI) | payer OTHER, SELFPAY ==
--- NOTE | 2024-01-30 10:14 | EST_ITS ---
Patient Info Name: Lakeshia Davila Age: 58 years : 1965 Gender: Female Ht: 63 in Wt: 215 lbs BSA: 2.13 m2 HR: 64 bpm BP: 147 / 42 mmHg Exam Date: 01/30/2024 11:42 AM Exam Location: Echo Lab Patient Status: Outpatient Admit Date: 01/30/2024 Staff Ordering Physician: Lesa Roblero APRN Attending Provider: Lesa Roblero APRN Exercise Technologist: Ladi Mullins [facility] Exercise Physician: Adrien Bowers DO Exam Type: CA stress test treadmill Study Info A treadmill exercise stress test was performed. Summary 1. 1. Negative João exercise stress test for ischemic ST changes by ECG criteria. 2. 2. Reduced functional capacity, achieving 7 METs of workload. 3. 3. Hypertensive response to exercise. 4. 4. Appropriate HR response to exercise. 5. 5. Appropriate HR recovery at 1 minute post exercise. 6. 6. No imaging with stress testing. 7. 7. Patient informed of the above results. Protocol: João Stress ECG Details Stage: REST Duration (min): 1 min : 9 sec Speed (mph): 0.0 Grade (%): 0 HR (bpm): 60 SBP (mmHg): 147 DBP (mmHg): 42 METS: --- Stage: REST Duration (min): 5 min : 55 sec Speed (mph): 0.0 Grade (%): 0 HR (bpm): 72 SBP (mmHg): 147 DBP (mmHg): 42 METS: --- Stage: STAGE 1 Duration (min): 1 min : 0 sec Speed (mph): 1.7 Grade (%): 10 HR (bpm): 96 SBP (mmHg): 147 DBP (mmHg): 42 METS: --- Stage: STAGE 1 Duration (min): 2 min : 0 sec Speed (mph): 1.7 Grade (%): 10 HR (bpm): 110 SBP (mmHg): 147 DBP (mmHg): 42 METS: --- Stage: STAGE 1 Duration (min): 3 min : 0 sec Speed (mph): 1.7 Grade (%): 10 HR (bpm): 122 SBP (mmHg): 193 DBP (mmHg): 79 METS: --- Stage: STAGE 2 Duration (min): 1 min : 0 sec Speed (mph): 2.5 Grade (%): 12 HR (bpm): 135 SBP (mmHg): 193 DBP (mmHg): 79 METS: --- Stage: STAGE 2 Duration (min): 2 min : 0 sec Speed (mph): 2.5 Grade (%): 12 HR (bpm): 143 SBP (mmHg): 225 DBP (mmHg): 76 METS: --- Stage: STAGE 2 Duration (min): 2 min : 0 sec Speed (mph): 2.5 Grade (%): 12 HR (bpm): 142 SBP (mmHg): 225 DBP (mmHg): 76 METS: --- Stage: RECOVERY Duration (min): 0 min : 59 sec Speed (mph): 0.0 Grade (%): 0 HR (bpm): 129 SBP (mmHg): 225 DBP (mmHg): 76 METS: --- Stage: RECOVERY Duration (min): 1 min : 59 sec Speed (mph): 0.0 Grade (%): 0 HR (bpm): 115 SBP (mmHg): 225 DBP (mmHg): 76 METS: --- Stage: RECOVERY Duration (min): 2 min : 59 sec Speed (mph): 0.0 Grade (%): 0 HR (bpm): 96 SBP (mmHg): 163 DBP (mmHg): 73 METS: --- Stage: RECOVERY Duration (min): 3 min : 5 sec Speed (mph): 0.0 Grade (%): 0 HR (bpm): 98 SBP (mmHg): 163 DBP (mmHg): 73 METS: --- Rest HR: 72 bpm Peak HR: 143 bpm Rest Sys BP: 147 mmHg Peak Sys BP: 225 mmHg Max Pred HR: 162 bpm % Max Pred HR: 88 % Target HR: 138 bpm Max RPP: 32,175 bpm*mmHg Dougherty Score: -3 BP Response: Patient exhibited a hypertensive response with stress Termination Reason: Reached target heart rate or workload Cardiac Symptoms: Shortness of breath Max ST Seg Deviation: -1.60 mm Total Time: 5 min : 0 sec Rest Bae BP: 42 mmHg Peak Bae BP: 76 mmHg Angina Score: None Total METS: 7.1 Resting ECG Sinus rhythm. Stress ECG No ST changes. Arrhythmias None. Report Signatures
--- NOTE | 2024-01-30 10:18 | ECHO_ITS ---
Patient Info Name: Lakeshia Davila Age: 58 years : 1965 Gender: Female Ht: 63 in Wt: 215 lbs BSA: 2.13 m2 HR: 65 bpm BP: 150 / 75 mmHg Technical Quality: Fair Exam Date: 01/30/2024 10:50 AM Exam Location: Echo Lab Patient Status: Outpatient Admit Date: 01/30/2024 Staff Ordering Physician: Lesa Roblero APRN [employer] Offbearer: Phu Cantu RDCS Attending Provider: Lesa Roblero APRN Referring Physician: Osbaldo FONSECA; Exam Type: CA echo doppler color flow Study Info Indications - CARDIAC MURMUR Complete two-dimensional, color flow and Doppler transthoracic echocardiogram is performed. Summary 1. Complete two-dimensional, color flow and Doppler transthoracic echocardiogram is performed. 2. Left ventricular chamber dimension is normal. 3. Left ventricular systolic function is normal, estimated at 65-70%. 4. There is mild concentric increased left ventricular wall thickness. 5. The left ventricular diastolic function is grade I diastolic dysfunction. 6. E/e' 11 is mildly elevated. 7. Left atrial chamber dimension is mildly enlarged. 8. There is moderate aortic valve sclerosis. 9. There is mild aortic valve stenosis with a peak velocity of 286 cm/s, mean gradient of 19 mmHg, and aortic valve area of 1.6 cm2. 10. There is trace aortic valve regurgitation. 11. The mitral valve has moderately calcified annulus. 12. No pulmonary hypertension, estimated pulmonary arterial systolic pressure is 27 mmHg. Left Ventricle E/e' 11 is mildly elevated. Left ventricular chamber dimension is normal. Left ventricular systolic function is normal, estimated at 65-70%. There is mild concentric increased left ventricular wall thickness. The left ventricular diastolic function is grade I diastolic dysfunction. Right Ventricle Right ventricular systolic function is normal and with normal TAPSE 2.3 cm. Right ventricular chamber dimension is normal. Left Atria Left atrial chamber dimension is mildly enlarged. Right Atria Right atrial chamber dimension is normal. Aortic Valve The aortic valve is trileaflet. There is moderate aortic valve sclerosis. There is mild aortic valve stenosis with a peak velocity of 286 cm/s, mean gradient of 19 mmHg, and aortic valve area of 1.6 cm2. There is trace aortic valve regurgitation. Pulmonic Valve There is no pulmonic regurgitation. Mitral Valve The mitral valve has moderately calcified annulus. There is no mitral valve stenosis. There is no mitral valve regurgitation. Tricuspid Valve There is no tricuspid valve regurgitation. No pulmonary hypertension, estimated pulmonary arterial systolic pressure is 27 mmHg. Pericardium/Pleural There is no pericardial effusion. Inferior Vena Cava Normal inferior vena cava with >50% collapse upon inspiration consistent with normal right atrial pressure, 5 mmHg. Aorta The aortic root size at the sinus of Valsalva is normal. Left Ventricular Outflow Tract Name Value Normal LVOT 2D LVOT Diameter 1.9 cm LVOT Doppler LVOT Peak Gradient 8 mmHg LVOT Mean Gradient 5 mmHg LVOT VTI 37 cm LVOT VTI/AV VTI Ratio 0.5 LVOT Stroke Volume 107 ml LVOT CO 8.3 l/min LVOT CI 3.9 l/min/m2 Pulmonic Valve Name Value Normal RVOT Doppler RVOT Peak Gradient 3 mmHg PV Doppler PV Peak Gradient 5 mmHg Mitral Valve Name Value Normal MV Doppler MV Decel Vinton 425 cm/s2 MV PHT 69 ms MV Area (PHT) 3.2 cm2 4.0-5.0 MV Diastolic Function MV E Peak Velocity 101 cm/s MV A Peak Velocity 117 cm/s MV E/A 0.9 MV Decel Time 238 ms MV Annular TDI MV E/e' (Septal) 13.1 <=8.0 MV E/e' (Lateral) 10.1 <=8.0 MV E/e' (Average) 11.6 Tricuspid Valve Name Value Normal TV Regurgitation Doppler TR Peak Velocity 237 cm/s TR Peak Gradient 22 mmHg Estimated PAP/RSVP RA Pressure 5 mmHg <=5 PA Systolic Pressure 27 mmHg <36 RV Systolic Pressure 27 mmHg <36 Aorta Name Value Normal Ascending Aorta Ao Root Diameter (MM) 3.2 cm Ao Root Diam Index (MM) 1.5 cm/m2 Aortic Valve Name Value Normal AV Doppler AV Peak Velocity 286 cm/s AV Peak Gradient 33 mmHg AV Mean Gradient 19 mmHg AV VTI 68 cm AV Area (Cont Eq VTI) 1.6 cm2 >=3.0 AV Area (Cont Eq Fer) 1.4 cm2 AV Regurgitation 2D LVOT Area 2.9 cm2 AV Regurgitation Doppler AR Decel Time 1,838 ms AR Decel Vinton 224 cm/s2 AR PHT 533 ms Ventricles Name Value Normal LV Dimensions 2D/MM IVS Diastolic Thickness (2D) 1.4 cm 0.6-1.0 LVID Diastole (2D) 4.4 cm 3.8-5.2 LVIW Diastolic Thickness (2D) 1.0 cm 0.6-0.9 LVID Systole (2D) 2.6 cm 2.2-3.5 LVOT Diameter 1.9 cm LV Mass (2D Cubed) 187.08 g 67.00-162.00 LV Mass Index (2D Cubed) 88 g/m2 43-95 Relative Wall Thickness (2D) 0.46 LV Fractional Shortening/Ejection Fraction 2D/MM LV Fractional Shortening (2D) 39 % 27-45 LV EF (2D Teicholz) 70 % 54-74 LV Diastolic Volume (4C MOD) 85 ml LV EF (4C MOD) 62 % LV Diastolic Volume (2C MOD) 89 ml LV EF (2C MOD) 70 % LV Diastolic Volume (BP MOD) 87 ml 46-106 LV Diastolic Volume Index (BP MOD) 41 ml/m2 29-61 LV Systolic Volume (BP MOD) 30 ml 14-42 LV Systolic Volume Index (BP MOD) 14 ml/m2 8-24 LV EF (BP MOD) 66 % 54-74 LV Diastolic Length (4C) 7.4 cm LV Systolic Length (4C) 6.1 cm LV Stroke Volume (4C MOD) 53 ml Atria Name Value Normal LA Dimensions LA Dimension (MM) 3.5 cm 2.7-3.8 LA Volume (4C A-L) 59 ml LA Volume (BP A-L) 50 ml RA Dimensions RA Area (4C) 14.4 cm2 <=18.0 Report Signatures
== END 2024-01-30 10:06 | disposition home or self-care (01) ==
PROVIDERS: PCP Family Medicine; Visit Provider Nurse Practitioner Adult Health
DX: R01.1 Cardiac murmur, unspecified (principal); I20.89 Other forms of angina pectoris; I35.8 Other nonrheumatic aortic valve disorders; I35.0 Nonrheumatic aortic (valve) stenosis; I35.1 Nonrheumatic aortic (valve) insufficiency; I34.81 Nonrheumatic mitral (valve) annulus calcification; E11.9 Type 2 diabetes mellitus without complications; I51.89 Other ill-defined heart diseases
CPT/HCPCS: 93017; 93306

== ENCOUNTER 2024-04-12 00:47 | Day surgery (SDC) | payer OTHER, SELFPAY ==
[2024-04-04 08:41] VITALS: BMI 38.1
[2024-04-12 08:17] VITALS: BP 121/70; PULSE 72; RESP 16; TEMP 35.9; O2SAT 99; BMI 37.4
--- NOTE | 2024-04-12 08:20 | WPDANESEPPF ---
Anes - Initial Pre Proc Eval Procedure: Operation Date: 04/12/24 09:30 Proposed Procedures p Screening Colonoscopy - Ciro Sommers MD Date/Time: 04/12/24 08:20 Surgeon: Ciro Sommers MD Pre Op Diagnosis: screening colon Patient Data Age: 58 Gender: F Height: 1.6 m Weight: 95.8 kg Last Vital Signs Temp 35.9 C L 04/12/24 08:17 Pulse 72 04/12/24 08:17 Resp 16 04/12/24 08:17 BP 121/70 04/12/24 08:17 Pulse Ox 99 04/12/24 08:17 O2 Del Method Room Air 04/12/24 08:17 Allergies Allergy/AdvReac Type Severity Reaction Status Date / Time No Known Allergies Allergy Verified 04/12/24 08:16 Home Medications ?Medication ?Instructions ?Recorded ?Confirmed ?Type cholecalciferol (vitamin D3) 125 125 mcg PO DAILY #30 caps 03/04/24 04/12/24 Rx mcg (5,000 unit) capsule dapagliflozin propanediol 5 mg 5 mg PO DAILY #30 tabs 04/01/24 04/12/24 Rx tablet (Farxiga) Patient hx anesthesia problems: none Family hx anesthesia problems: none Results Review: All pre-operative results and documents have been reviewed as part of the pre-operative evaluation. [facility] Past Medical History Medical History Cough Pharyngitis Abnormal result of iron profile testing Vitamin D deficiency Elevated lipids Glucosuria Fatigue Abdominal pain Abnormal stress test Elevated d-dimer Angina at rest Murmur, cardiac Menopausal and postmenopausal disorder Screening for colon cancer Screening for breast cancer Elevated liver enzymes Diabetes Mixed hyperlipidemia Cardiac murmur Aortic valve sclerosis Surgical History Surgical History Hx laparoscopic cholecystectomy 12/21/[address] Fung Hx of section 1992 No significant past surgical history Family History Family History Father Hypertension Family history of diabetes mellitus in first degree relative Family history of lung cancer Family history of type 2 diabetes mellitus Patient's father is Grandparent Hypertension Other Atrial fibrillation Cerebrovascular accident Crohn disease Social History Social History Smoking packs per day: 1 Smoking cigarettes per day: 20.0 Years smoked: 20 Smoking pack-years: 20.00 Smoking status: Former smoker Tobacco type: cigarettes Smoking end date: 12/11/06 Alcohol intake: current Drinks per week: 1 Substance use type: marijuana Other substance usage details: Daily Do You Feel Safe in your Home?: Yes Lack of Transportation: No Lack of Food: Sometimes True Current Housing: I Have Housing Concerned About Future Housing: No Difficulty Paying Gas/Electric Bills: No Difficulty Paying for Meds: No Currently Unemployed: No Education: Associate Degree Difficulty w/ Childcare or Family Care: No Living arrangements: with family Gender identity (if verbalized by the patient): Female Spiritual care concerns: No Anes - Eval Final PreProcedure Day of Procedure 04/12/24 08:20 Patient weight: obese Heart: regular rate and rhythm Lungs: clear to auscultation Airway: Mallampati scale class II Neurological: alert and oriented Last oral intake: >/= 8 hours ASA classification: III Emergent: no Anesthetic plan: proceed Anesthesia type and monitoring: general GIVS and standard monitoring Results Review: All pre-operative results and documents have been reviewed as part of the pre-operative evaluation. Informed Consent: The patient's anesthetic plan and its attendant risks and benefits were discussed with the patient/family/POA. Questions were solicited and answers provided to the satisfaction of the patient/family/POA.
[2024-04-12] MEDS: LACTATED RINGERS 1,000 ML 150 ML IV CONT (08:26)
[2024-04-12 08:27] LABS: Glucose Point of Care 123 mg/dl (65-105)
--- NOTE | 2024-04-12 08:55 | PM.HPGS ---
History of Present Illness History of Present Illness Consent: Risks, benefits, and alternatives have been discussed and questions answered. Patient agrees to proceed with procedure. Chief complaint: screening colon Narrative: Lakeshia Davila is a 58 year old female here for first screening colonoscopy Review of Systems Review of Systems: All systems reviewed & are unremarkable except as noted in HPI and below PMFSH Past Medical History Medical History Cough Pharyngitis Abnormal result of iron profile testing Vitamin D deficiency Elevated lipids Glucosuria Fatigue Abdominal pain Abnormal stress test Elevated d-dimer Angina at rest Murmur, cardiac Menopausal and postmenopausal disorder Screening for colon cancer Screening for breast cancer Elevated liver enzymes Diabetes Mixed hyperlipidemia Cardiac murmur Aortic valve sclerosis Surgical History Surgical History Hx laparoscopic cholecystectomy 12/21/[address] Fung Hx of section 1992 No significant past surgical history Family History Family History Father Hypertension Family history of diabetes mellitus in first degree relative Family history of lung cancer Family history of type 2 diabetes mellitus Patient's father is Grandparent Hypertension Other Atrial fibrillation Cerebrovascular accident Crohn disease Social History Social History Smoking packs per day: 1 Smoking cigarettes per day: 20.0 Years smoked: 20 Smoking pack-years: 20.00 Smoking status: Former smoker Tobacco type: cigarettes Smoking end date: 12/11/06 Alcohol intake: current Drinks per week: 1 Substance use type: marijuana Other substance usage details: Daily Do You Feel Safe in your Home?: Yes Lack of Transportation: No Lack of Food: Sometimes True Current Housing: I Have Housing Concerned About Future Housing: No Difficulty Paying Gas/Electric Bills: No Difficulty Paying for Meds: No Currently Unemployed: No Education: Associate Degree Difficulty w/ Childcare or Family Care: No Living arrangements: with family Gender identity (if verbalized by the patient): Female Spiritual care concerns: No Meds Home Medications and Allergies Home Medications ?Medication ?Instructions ?Recorded ?Confirmed ?Type cholecalciferol (vitamin D3) 125 125 mcg PO DAILY #30 caps 03/04/24 04/12/24 Rx mcg (5,000 unit) capsule dapagliflozin propanediol 5 mg 5 mg PO DAILY #30 tabs 04/01/24 04/12/24 Rx tablet (Farxiga) Allergies Allergy/AdvReac Type Severity Reaction Status Date / Time No Known Allergies Allergy Verified 04/12/24 08:16 Vital Signs Vital Signs - 24 hr 04/12/24 08:17 Temperature 96.7 F L Pulse Rate 72 Respiratory Rate 16 Blood Pressure 121/70 Pulse Oximetry 99 Oxygen Delivery Room Air Exam Const: General: comfortable and no acute distress HENMT: Face/Nose/Sinus: Normal nares present Eyes: General: appearance normal, both eyes and all related structures Neck: Neck: no JVD Resp: Auscultation: clear to auscultation bilaterally Cardio: Rate: regular rate Rhythm: regular rhythm GI: Inspection: non-distended GI Palp: Yes Soft to palpation Skin: General skin exam: normal color Neuro: General: gait normal Speech: normal speech Extrem: General: normal to inspection Psych: Mental Status: mental status grossly normal Assessment and Plan Assessment and plan (1) Screening for colon cancer: Code(s): Z12.11 - Encounter for screening for malignant neoplasm of colon Status: Acute Assessment and Plan: colonoscopy
[2024-04-12 09:12] VITALS: BP 116/56; PULSE 65; RESP 18; O2SAT 97
[2024-04-12 09:22] VITALS: BP 115/61; PULSE 64; RESP 21; O2SAT 98
[2024-04-12 09:32] VITALS: BP 136/69; PULSE 67; RESP 20; O2SAT 100
== END 2024-04-12 09:37 | disposition home or self-care (01) ==
PROVIDERS: PCP Family Medicine; Referring Provider Nurse Practitioner Adult Health; Visit Provider Internal Medicine Gastroenterology
PROC: 0DJD8ZZ Inspection of Lower Intestinal Tract, Via Natural or Artificial Opening Endoscopic (ICD-10-PCS; CPT 45378; principal; 2024-04-12 09:30)
DX: Z12.11 Encounter for screening for malignant neoplasm of colon (principal); D12.2 Benign neoplasm of ascending colon; D12.4 Benign neoplasm of descending colon; K64.8 Other hemorrhoids; E55.9 Vitamin D deficiency, unspecified; R01.1 Cardiac murmur, unspecified; E11.9 Type 2 diabetes mellitus without complications; E78.2 Mixed hyperlipidemia; I35.8 Other nonrheumatic aortic valve disorders; F12.90 Cannabis use, unspecified, uncomplicated; E66.9 Obesity, unspecified; Z68.37 Body mass index [BMI] 37.0-37.9, adult; Z79.84 Long term (current) use of oral hypoglycemic drugs; Z98.890 Other specified postprocedural states; Z90.49 Acquired absence of other specified parts of digestive tract; Z87.891 Personal history of nicotine dependence; Z80.1 Family history of malignant neoplasm of trachea, bronchus and lung; Z82.49 Family history of ischemic heart disease and other diseases of the circulatory system
CPT/HCPCS: 45385; 82948; 88305; J2003; J2704; J7120

== ENCOUNTER 2024-05-16 08:16 | Outpatient (CLI) | payer OTHER, SELFPAY ==
--- NOTE | ~2024-05-16 | MM_ITS ---
EXAMINATION: MM screening wilber BI w kerry HISTORY: Screening TECHNIQUE: Craniocaudal and mediolateral oblique 3-D tomosynthesis images were obtained and synthetic 2-D images were generated. CAD analysis was submitted and interpreted. COMPARISON: 03/26/2015 BREAST PARENCHYMAL COMPOSITION: Not dense: There are scattered areas of fibroglandular density. FINDINGS: There is no evidence of suspicious mass, calcification, or architectural distortion to sugg est malignancy in either breast. There has been no suspicious interval change. IMPRESSION: 1. No mammographic evidence of malignancy. 2. Recommend routine screening mammography in one year. BI-RADS Category 1: Negative Reviewed, dictated and finalized at location A.
== END 2024-05-16 08:17 | disposition home or self-care (01) ==
PROVIDERS: PCP Family Medicine; Visit Provider Nurse Practitioner Adult Health
DX: Z12.31 Encounter for screening mammogram for malignant neoplasm of breast (principal)
CPT/HCPCS: 77063; 77067

== ENCOUNTER 2024-06-18 07:00 | Outpatient (CLI) | payer OTHER, SELFPAY ==
--- NOTE | ~2024-06-18 | US_ITS ---
US abdomen complete EXAMINATION: US Abdomen Complete INDICATION: Mid upper abdominal pain. PROCEDURE: Realtime High Resolution abdomen ultrasound. COMPARISON: CT dated 11/10/2023 FINDINGS: Gallbladder is surgically absent. Common bile duct measures 6 mm. Liver echotexture is increased, consistent with fatty infiltration.. Pancreas within normal limits. Pancreatic tail is obscured by bowel gas. Spleen is unremarkeable. Renal echotexture is within norm al limits bilaterally without hydronephrosis, contour deforming mass or renal stone. Right kidney phuc sures 11.2 cm. Left kidney measures 11.4 cm. Visualized aspects of the aorta and IVC are within normal limits. Portal vein is patent. No sonograph ic Temple's sign indicated by the technologist. IMPRESSION: 1: Fatty infiltration of the liver. Reviewed, dictated and finalized at location A.
== END 2024-06-18 07:01 | disposition home or self-care (01) ==
PROVIDERS: PCP Family Medicine; Visit Provider Nurse Practitioner Adult Health
DX: R10.9 Unspecified abdominal pain (principal); K76.0 Fatty (change of) liver, not elsewhere classified
CPT/HCPCS: 76700

== ENCOUNTER 2024-08-30 06:47 | Outpatient (CLI) | payer OTHER, SELFPAY ==
--- NOTE | ~2024-08-30 | XR_ITS ---
Lumbosacral Spine: AP and lateral views Clinical History: Pain Findings: The normal lordotic curve is maintained. The vertebral bodies and posterior elements are i ntact. The intervertebral disc spaces are mildly degenerated. There is moderate facet arthropathy in the lumbar spine. The sacroiliac joints are normally outlined. Impression: Mild degenerative spondylosis overall, as above. Reviewed, dictated and finalized at location . Impression: Mild degenerative spondylosis overall, as above.
== END 2024-08-30 06:48 | disposition home or self-care (01) ==
PROVIDERS: PCP Family Medicine; Visit Provider Nurse Practitioner Adult Health
DX: M47.816 Spondylosis without myelopathy or radiculopathy, lumbar region (principal)
CPT/HCPCS: 72100

== ENCOUNTER 2024-11-01 15:37 | Outpatient (CLI) | payer OTHER, SELFPAY ==
--- OUTSIDE RECORDS SUMMARY | 2015-09-01 06:22 | XMS_ITS | Continuity of Care Document ---
Author Organization [facility] Address [address] [place] [phone] Phone Care Team Providers Care Corner Cutter Name Role Phone Miguel Diaz MD Unavailabl e Medications Medication Instructions Dosage Effective Dates (start - stop) Status Comments Pepcid 40 mg Tab 1 twice daily - Activ e Prilosec OTC 20 mg Tab Take once daily 3 0 minutes before breakfast - Active fluticasone 50 mcg/actuation Nasal [place], Susp Take once daily - Active loratadine 10 mg Tab Take once daily - Act ambrose gabapentin 300 mg Cap Take 1 three times a day - Active hydrochlorothiazide 25 mg Tab 1/2 BID - Active methimazole 5 mg Tab take 1 every day - Ac tive Procedures Procedure Date Ugi Endo; Dx W/wo Collec Specm 11 Colonoscopy Flex; W/remov Les- 11 ASC Facility Charge ASC Facility Charge Offic Cons New/estab Mod Advance Directives Directive Yes / No Effective Date File Name No Information Encounters Encounter Description Practice Location Reason(s) For Visit Diagnoses Date Provider Providers Copied on [facility]counter [facility], [address] [place] [address], [place], [place], [id number] tel:[phone] [facility] No Information [address] [place] [address], [id number], . tel:[phone] [facility], [address] [place] [address], [id number] tel:[phone] [facility] No Information 1 Fran Ndiaye. [address] [place] [address], [id number], [place]. tel:[phone] [facility], [address] [place] [address], [id number] tel:[phone] [facility] Hiatus herniaColon polypHemorrho ids, uncomplicated Family history of colon cancer 1 Kevin Adames. [address] [place] [address], [id number], [place]. tel:[phone] Referring Provider: Alicia Salas DO, [address] [place] [address], [id number]. tel:[phone] [facility], [address] [place] [address], [id number] tel:[phone] [facility] No Information 1 [facility]. [address] [place] [address], [id number], [place]. tel:[phone] Referring Provider: Zacarias Child, [address] [place] [address], [id number] . tel:[phone] Offic Cons New/estab Mod [facility], [address] [place] [address], [id number] tel:[phone] [facility] Arthritis, unspecified siteFamily history of colon cancerReflux, esophagealFam krystle history of colon cancerObesity Obesity 1 Kevin Adames. [address] [place] [address], [id number], [place]. tel:[phone] Referring Provider: Alicia Salas DO, [address] [place] [address], [id number]. tel:[phone] Family History Family Member Type Diagnosis Age At Onset No Information Payers Payer name Insurance type Covered republican ID Authormarion franz(s) [facility] [id number] Social History Type Description Quantity Date Captured Comments Sex Female Smoking Status No Information Chief Complaint And Reason For Visit No Information Reason For Referral Reason For Referral No Information History Of Present Illness Encounter Date Complaint History Of Prese nt Illness No Information Functional Status Date Functional Assessmen t No Information Instructions Date Instruction Additional Infor mation No Information Assessments Type Assessment Date No Information Patient Care Teams Name Effective Dates (start - stop) Status Members No Information
--- OUTSIDE RECORDS SUMMARY | 2020-06-19 04:08 | XMS_ITS | Continuity of Care Document ---
Author Organization [facility] Address [address] [place] [address] Care Team Providers Care Swimmer Name Role Phone Norah CASEY, Chao Unavailable Unavailab le Allergies, Adverse Reactions, Alerts Substance Reaction Status Criticality No Known Allergies Active No Inform ation Medications Medication Instructions Dosage Effective Dates (start - stop) Status Comments naproxen 500 mg tablet take 1 tablet by oral route 2 times every day with food as needed 500 MG - Active Probiotic 10 billion cell capsule One capsule by mouth daily - Active aspirin 81 mg tablet,delayed release take 1 tablet by oral route every day 81 MG - Active lovastatin 40 mg tablet take 1 tablet by oral route every day with the evening meal 40 MG - Active loratadine 10 mg tablet take 1 tablet by oral route every day 10 MG - Active pantoprazole 40 mg tablet,delayed release take 1 tablet by oral route every day 40 MG - Active fluticasone propionate 50 mcg/actuation nasal spray,suspension spray 1 spray by intranasal route every day in each nostril - Active Cozaar 25 mg tablet take 1 tablet by ora l route every day 25 MG - Active Procedures Procedure Date Offic/outpt E&m New Complex e/m visit add on Offic/outpt E&m New Advanced Directives Documented Complex e/m visit add on Ecg-routine 12 Lead; W/intrpt Keaton-04-202 1 Advance Directives Directive Yes / No Effective Date File Name No Information Encounters Encounter Description Practice Location Reason(s) For Visit Diagnoses Date Provider Providers Copied on Encounter [facility], [address] [place] [address], [facility], [facility] Office No Information 1 Norah Guidry. [address] [facility], [address], [address], . tel:[phone] Offic/outpt E&m [facility], [address] [place] [address], [facility], [place] [facility] Freeform HPI (chief complaint)C ardiovascul ar Review (chief complaint) Preoperative cardiovascula r examinationEs sential hypertensionO ther hyperlipidemi aFibromyalgia Chronic GERDCarpal tunnel syndrome, unspecified lateralityAbd ominal obesityCardio myopathy, unspecified typeAbnormal ECG 1 Norah Guidry. [address] [address], [place], [address], [place]. tel:[phone] Referring Provider: Sreekanth Santa, [address] [place], [place], [address]. tel:[phone] [facility], [address] [place] [address], [facility], [facility] Office No Information 1 Norah Guidry. [address] [address], [place], [address], [place]. tel:[phone] Offic/outpt E&m [facility], [address] [place] [address], [facility], [facility] *Cardiovasc ular Evaluation (chief complaint)C ardiovascul ar Review (chief complaint) Essential hypertensionO ther hyperlipidemi aFibromyalgia Chronic GERDCarpal tunnel syndrome, unspecified lateralityAbd ominal obesityPreope rative cardiovascula r examination 1 Sheryl Kebede. [address] [facility], [address] [facility], [place], [address], [place]. tel:[phone] Referring Provider: Sreekanth Santa, [address] [address], [place], [address]. tel:[phone] Family History Family Member Type Diagnosis Age At Onset No Information Payers Payer name Insurance type Covered constitution party ID Maryjo franz(s) [facility] [id number] Social History Type Description Quantity Date Captured Comments Alcohol Use Details Unknown Caffeine Use Details Unknown Tobacco Use Status No Information Smoking Status No Information Sex Female Chief Complaint And Reason For Visit No Information Reason For Referral Reason For Referral No Information History Of Present Illness Encounter Date Complaint History Of Prese nt Illness Cardiovascular Review The wilian casey has had no chest discomfort suggestive of ischemia. The patient denies orthopnea, PND, CHASE, or edema. Ms. Argueta has not had palpitations, syncope or near syncope. The patient denies claudication. There is no discoloration or ulceration of the lower extremities. The patient has had no TIA or stroke-like symptoms. The patient has no symptoms attributable to valvular heart disease. Freeform HPI seen DF for preo p op. had some baseline ecg changes. had stress pharm nuc in dec 2019 at [facility] that showed no ischemia or scar, ef was 27. apparently she went to [facility] ER with chest pain on 02/16. She had echo that showed normal EF, we dont have that report. *Cardiovascular Evaluation Neded to have a full hysterectomyHad an ECG and then a stress testHad an abnormal stress test3 weeks ago [facility] [place] customer servicelives aloneMom has htn but no fh of cadMom had an aneurismPhysically active and walks regularly Cardiovascular Review The wilian casey has had no chest discomfort suggestive of ischemia. The patient denies orthopnea, PND, CHASE, or edema. Ms. Argueta has not had palpitations, syncope or near syncope. The patient denies claudication. There is no discoloration or ulceration of the lower extremities. The patient has had no TIA or stroke-like symptoms. The patient has no symptoms attributable to valvular heart disease. Functional Status Date Functional Assessmen t No Information Instructions Date Instruction Additional Infor mation No Information Assessments Type Assessment Date No Information Patient Care Teams Name Effective Dates (start - stop) Status Members No Information
--- NOTE | 2024-11-01 15:48 | ECHO_ITS ---
Patient Info Name: Lakeshia Davila Age: 58 years : 1965 Gender: Female Ht: 62 in Wt: 225 lbs BSA: 2.17 m2 HR: 65 bpm BP: 151 / 76 mmHg Technical Quality: Fair Exam Date: 11/01/2024 3:57 PM Patient Status: unknown Admit Date: 11/01/2024 Exam Type: CA echo doppler color flow Complete two-dimensional, color flow and Doppler transthoracic echocardiogram is performed. Route Delivery Clerk: Deshaun Cisneros III Attending Provider: Adrien Bowers DO Summary 1. Complete two-dimensional, color flow and Doppler transthoracic echocardiogram is performed. 2. Left ventricular chamber dimension is normal. 3. Left ventricular systolic function is normal, estimated at 60-65. 4. The left ventricular diastolic function is abnormal. 5. E/e' 14 is mildly elevated. 6. Left atrial chamber dimension is mildly enlarged. 7. There is severe aortic valve sclerosis. 8. There is mild to moderate aortic valve stenosis with a peak velocity of 401 cm/s, mean gradient of 29 mmHg, and aortic valve area of 1.5 cm2. 9. There is mild aortic valve regurgitation. 10. The mitral valve has a moderately calcified annulus. 11. No pulmonary hypertension, estimated pulmonary arterial systolic pressure is 15 mmHg. Left Ventricle E/e' 14 is mildly elevated. Left ventricular chamber dimension is normal. Left ventricular systolic function is normal, estimated at 60-65. The left ventricular diastolic function is abnormal. Right Ventricle Right ventricular chamber dimension is normal. Right ventricular systolic function is normal and with normal TAPSE 2.4 cm. Left Atria Left atrial chamber dimension is mildly enlarged. Right Atria Right atrial chamber dimension is normal. Aortic Valve The aortic valve is trileaflet. There is severe aortic valve sclerosis. There is mild to moderate aortic valve stenosis with a peak velocity of 401 cm/s, mean gradient of 29 mmHg, and aortic valve area of 1.5 cm2. There is mild aortic valve regurgitation. Pulmonic Valve There is no pulmonic regurgitation. Mitral Valve The mitral valve has a moderately calcified annulus. There is no mitral valve stenosis. There is no mitral valve regurgitation. Tricuspid Valve There is no tricuspid valve regurgitation. No pulmonary hypertension, estimated pulmonary arterial systolic pressure is 15 mmHg. Pericardium/Pleural There is no pericardial effusion. Inferior Vena Cava Normal inferior vena cava with >50% collapse upon inspiration consistent with normal right atrial pressure, 5 mmHg. Aorta The aortic root size at the sinus of Valsalva is normal. Left Ventricular Outflow Tract Name Value Normal LVOT 2D LVOT Diameter 2.0 cm LVOT Doppler LVOT Peak Velocity 155 cm/s LVOT Peak Gradient 10 mmHg LVOT Mean Gradient 6 mmHg LVOT VTI 38 cm LVOT VTI/AV VTI Ratio 0.5 LVOT Stroke Volume 114 ml LVOT CO 19.4 l/min LVOT CI 8.9 l/min/m2 Pulmonic Valve Name Value Normal PV Doppler PV Peak Velocity 148 cm/s PV Peak Gradient 9 mmHg Mitral Valve Name Value Normal MV Doppler MV Peak Gradient 9 mmHg MV Mean Gradient 4 mmHg MV Area (Cont Eq VTI) 2.2 cm2 MV Diastolic Function MV E Peak Velocity 143 cm/s MV A Peak Velocity 130 cm/s MV E/A 1.1 MV Annular TDI MV E/e' (Septal) 17.0 MV E/e' (Lateral) 12.6 MV E/e' (Average) 14.8 Tricuspid Valve Name Value Normal TV Regurgitation Doppler TR Peak Velocity 162 cm/s TR Peak Gradient 10 mmHg Estimated PAP/RSVP RA Pressure 5 mmHg <=5 PA Systolic Pressure 15 mmHg <36 RV Systolic Pressure 15 mmHg <36 TV Annular TDI TV Lateral Jamee s' Velocity 14.0 cm/s >=9.5 Aortic Valve Name Value Normal AV Doppler AV Peak Velocity 401 cm/s AV Peak Gradient 64 mmHg AV Mean Gradient 29 mmHg AV VTI 74 cm AV Area (Cont Eq VTI) 1.5 cm2 >=3.0 AV Area (Cont Eq Fer) 1.2 cm2 AV DI (Fer) 0.39 AV Regurgitation 2D LVOT Area 3.0 cm2 Ventricles Name Value Normal LV Dimensions 2D/MM IVS Diastolic Thickness (2D) 4.5 cm 0.6-1.0 LVID Diastole (2D) 4.5 cm 3.8-5.2 LVID Systole (2D) 3.0 cm 2.2-3.5 LVOT Diameter 2.0 cm LV Fractional Shortening/Ejection Fraction 2D/MM LV Fractional Shortening (2D) 32 % 27-45 LV EF (2D Teichholz) 61 % LV Diastolic Volume (4C MOD) 109 ml LV EF (4C MOD) 67 % LV Diastolic Volume (2C MOD) 59 ml LV EF (2C MOD) 62 % LV Diastolic Volume (BP MOD) 89 ml 46-106 LV Diastolic Volume Index (BP MOD) 41 ml/m2 29-61 LV Systolic Volume (BP MOD) 32 ml 14-42 LV Systolic Volume Index (BP MOD) 15 ml/m2 8-24 LV EF (BP MOD) 65 % 54-74 LV Diastolic Length (4C) 8.3 cm LV Systolic Length (4C) 6.9 cm LV Stroke Volume (4C MOD) 73 ml Atria Name Value Normal LA Dimensions LA Volume (4C A-L) 49 ml LA Volume (BP A-L) 56 ml RA Dimensions RA Area (4C) 17.8 cm2 <=18.0 Report Signatures
== END 2024-11-01 15:38 | disposition home or self-care (01) ==
PROVIDERS: PCP Family Medicine; Visit Provider Internal Medicine Cardiovascular Disease
DX: I35.0 Nonrheumatic aortic (valve) stenosis (principal); I35.8 Other nonrheumatic aortic valve disorders; I35.1 Nonrheumatic aortic (valve) insufficiency; I34.81 Nonrheumatic mitral (valve) annulus calcification
CPT/HCPCS: 93306